=== PATIENT | female | born 1940 | race Caucasian/White ===

== ENCOUNTER → 2016-08-25 | Outpatient (CLI) | payer MEDICARE ==
--- NOTE | 2016-08-25 09:53 | RAD ---
DATE: 08/25/2016 EXAM: DIGITAL SCREEN BILAT W/CAD HISTORY: Screening study. COMPARISON: 06/04/2015 This study was interpreted with the benefit of Computerized Aided Detection (CAD). FINDINGS: Digital MLO and CC mammograms of both breasts were obtained. An additional MLO digital mammogram of the left breast was obtained. Comparison study is dated 06/04/2015. The breast parenchyma is composed of scattered fibroglandular densities which can obscure a lesion on mammography (breast density code B). Benign-appearing calcifications are seen within both breasts. No spiculated mass is seen. No malignant appearing calcification or area of architectural distortion is noted. Since the previous examination, there has been no significant interval change. IMPRESSION: BI-RADS Category 1, negative. There is no mammographic evidence of malignancy. Routine yearly screening mammography is recommended for follow-up. BI-RADS CATEGORY: 1 NEGATIVE RECOMMENDED FOLLOW-UP: 12M 12 MONTH FOLLOW-UP PQRS compliance statement: Patient information was entered into a reminder system with a target due date 08/25/2017 for the next mammogram. Mammography is a sensitive method for finding small breast cancers, but it does not detect them all and is not a substitute for careful clinical examination. A negative mammogram does not negate a clinically suspicious finding and should not result in delay in biopsying a clinically suspicious abnormality. "Our facility is accredited by the [employer] Mammography Program."
--- NOTE | 2016-08-25 13:03 | RAD ---
EXAM: Chest 2 views. HISTORY: Chest and back pain. COMPARISON: None. FINDINGS: Frontal and lateral views of the chest are obtained. There are no confluent infiltrates. There is no pneumothorax or pleural effusion. The heart is not enlarged. There are atherosclerotic calcifications of the aorta. IMPRESSION: 1. No confluent infiltrates.
--- NOTE | 2016-08-26 18:53 | CARD ---
APPROVED REPORT EXAM: Two-dimensional and M-mode echocardiogram with Doppler and color Doppler. Other Information Quality : Good INDICATION Chest Pain Murmur 2D DIMENSIONS RVDd2.9 (2.9-3.5cm)Left Atrium(2D)3.2 (1.6-4.0cm) IVSd1.3 (0.7-1.1cm)Aortic Root(2D)2.6 (2.0-3.7cm) LVDd4.8 (3.9-5.9cm)LVOT Diameter2.0 (1.8-2.4cm) PWd0.9 (0.7-1.1cm)LVDs3.2 (2.5-4.0cm) FS (%) 33.1 %SV67.5 ml LVEF(%)55.0 (>50%) Aortic Valve AoV Peak Lalit.155.2cm/sAoV VTI34.9cm AO Peak GR.9.6mmHgLVOT Peak Lalit.105.6cm/s LVOT VTI 22.05cmAO Mean GR.6mmHg YANG (VMAX)2.26hh7ZTZ (VTI)1.97cm2 Mitral Valve MV E Aumbqyys01.9cm/sMV DECEL [id number] MV A Ryrvyvgt18.8cm/sMV WVR33pa E/A Ratio0.7MVA (PHT)3.39cm2 TDI E/Lateral E'9.9E/Medial E'13.0 Tricuspid Valve TR P. Zhyfjmlp018rd/sRAP AAFXAHBE2tyKa TR Peak Gr.[id number] Pulmonary Vein S1 Pteivvrm25.3cm/sD2 Owhujepw98.9cm/s PVa [id number] LEFT VENTRICLE The left ventricle is normal size. There is mild asymmetric septal left ventricular hypertrophy. The left ventricular systolic function is normal and the ejection fraction is within normal range. The Ej ection Fraction is 55%. There is normal LV segmental wall motion. Transmitral Doppler flow pattern is Grade I-abnormal relaxation pattern. RIGHT VENTRICLE The right ventricle is normal size. The right ventricular systolic function is mildly impaired ATRIA The left atrium size is normal. The right atrium size is normal. The interatrial septum is intact wit h no evidence for an atrial septal defect or patent foramen ovale as noted on 2-D or Doppler imaging. AORTIC VALVE The aortic valve is calcified but opens well. Doppler and Color Flow revealed trace aortic regurgitat ion. There is no significant aortic valvular stenosis. MITRAL VALVE The mitral valve is normal in structure Mitral annular calcification is mild. There is no evidence of mitral valve prolapse. There is no mitral valve stenosis. Doppler and Color-flow revealed trace mitr al regurgitation. TRICUSPID VALVE The tricuspid valve is normal in structure Doppler and Color Flow revealed trace to mild tricuspid re gurgitation. The PA pressure was estimated at 28 mmHg. There is no tricuspid valve stenosis. PULMONIC VALVE The pulmonary valve is normal in structure Doppler and Color Flow revealed mild to moderate pulmonic valvular regurgitation. There is no pulmonic valvular stenosis. GREAT VESSELS The aortic root is normal in size. The ascending aorta is normal in size. The IVC is normal in size a nd collapses >50% with inspiration. PERICARDIAL EFFUSION There is no evidence of significant pericardial effusion. Critical Notification Critical Value: No <Conclusion> The left ventricular systolic function is normal and the ejection fraction is within normal range. The Ejection Fraction is 55%. Transmitral Doppler flow pattern is Grade I-abnormal relaxation pattern. The right ventricular systolic function is mildly impaired The left atrium size is normal. The right atrium size is normal. Doppler and Color Flow revealed trace aortic regurgitation. The aortic valve is calcified but opens well. Doppler and Color-flow revealed trace mitral regurgitation. The mitral valve is normal in structure Mitral annular calcification is mild. Doppler and Color Flow revealed trace to mild tricuspid regurgitation. The PA pressure was estimated at 28 mmHg. Doppler and Color Flow revealed mild to moderate pulmonic valvular regurgitation. There is no evidence of significant pericardial effusion.
== END | disposition home or self-care (01) ==
LOC: ECHO 07:36 → EDUNIT# 09:00
PROVIDERS: ATTEND Physician Assistant
DX: Z12.31 Encounter for screening mammogram for malignant neoplasm of breast (principal); R07.9 Chest pain, unspecified; R01.1 Cardiac murmur, unspecified; I08.3 Combined rheumatic disorders of mitral, aortic and tricuspid valves
CPT/HCPCS: 71020; 93306; G0202; 77067